=== PATIENT | female | born 1970 | race Caucasian/White ===

== ENCOUNTER 2018-05-10 17:56 | Inpatient (IN) | payer OTHER ==
[~2018-05-10] VITALS: Ht 160 cm; Wt 54.4 kg
[2018-05-10 18:11] VITALS: Ht 160 cm; Wt 54.4 kg
[2018-05-10 20:18] LABS: BASOPHIL % 0.3 % (0-2); PLATELET COUNT 270 x10^3mcL (130-400); RED CELL DISTRIBUTION WIDTH 13.2 % (11.5-14.5)
[2018-05-10 20:27] LABS: CARBON DIOXIDE 20.6 mmol/L (21-32); CREATININE SERUM 1.6 mg/dL (0.6-1.0); POTASSIUM SERUM 3.4 mmol/L (3.5-5.1)
[2018-05-10 20:33] LABS: ALBUMIN 4.5 g/dL (3.4-5.0); BILIRUBIN TOTAL 0.4 mg/dL (0.20-1.00)
[2018-05-10 20:44] LABS: TOTAL PROTEIN, SERUM 8.7 g/dL (6.4-8.2)
[2018-05-10 22:15] LABS: UA SPECIFIC GRAVITY 1.025 (1.005-1.035); microscopic required? YES; urine erythrocyte 2+ (NEGATIVE)
[2018-05-10 22:32] LABS: AMPHETAMINE QUAL UR NONE DETECTED (See below)
[2018-05-11 00:59] VITALS: BP 99/55
[2018-05-11 05:45] VITALS: BP 106/62
[2018-05-11 06:42] LABS: BASOPHIL % 0.4 % (0-2); PLATELET COUNT 198 x10^3mcL (130-400); RED CELL DISTRIBUTION WIDTH 13.3 % (11.5-14.5)
[2018-05-11 06:43] LABS: BILIRUBIN TOTAL 0.4 mg/dL (0.20-1.00); CALCIUM 7.7 mg/dL (8.5-10.1); CARBON DIOXIDE 22.8 mmol/L (21-32); CREATININE SERUM 1.4 mg/dL (0.6-1.0); TOTAL PROTEIN, SERUM 6.8 g/dL (6.4-8.2)
[2018-05-11 06:45] LABS: ALBUMIN 3.3 g/dL (3.4-5.0)
[2018-05-11 08:00] VITALS: BP 97/57
[2018-05-11 09:30] VITALS: BP 92/55
[2018-05-11 17:47] VITALS: BP 91/48
[2018-05-11 20:54] VITALS: BP 92/49
[2018-05-12 05:09] VITALS: BP 101/53
[2018-05-12 06:27] LABS: ALKALINE PHOSPHATASE 50 U/L (46-116); ALT/SGPT 14 U/L (14-59); AST/SGOT 29 U/L (15-37); CALCIUM 8.3 mg/dL (8.5-10.1); CARBON DIOXIDE 27.9 mmol/L (21-32); CHLORIDE SERUM 104 mmol/L (98-107); GFR1 > 60 mL/min; GLUCOSE SERUM 96 mg/dL (74-106); POTASSIUM SERUM 4.2 mmol/L (3.5-5.1); SODIUM SERUM 137 mmol/L (136-145); TOTAL PROTEIN, SERUM 6.9 g/dL (6.4-8.2)
[2018-05-12 06:44] LABS: ALBUMIN 3.2 g/dL (3.4-5.0)
[2018-05-12 09:04] VITALS: BP 92/59
[2018-05-12 17:23] VITALS: BP 98/60
[2018-05-12 20:57] VITALS: BP 105/63
[2018-05-13 05:56] VITALS: BP 97/54
[2018-05-13 09:25] VITALS: BP 89/47
[2018-05-13 11:34] VITALS: BP 93/55
[2018-05-13 17:27] VITALS: BP 106/63
[2018-05-13 20:56] VITALS: BP 101/65
[2018-05-14 05:23] VITALS: BP 107/62
[2018-05-14 06:25] LABS: CALCIUM 8.4 mg/dL (8.5-10.1); CARBON DIOXIDE 24.8 mmol/L (21-32); CHLORIDE SERUM 104 mmol/L (98-107); GFR1 > 60 mL/min; GLUCOSE SERUM 125 mg/dL (74-106); POTASSIUM SERUM 4.1 mmol/L (3.5-5.1); SODIUM SERUM 138 mmol/L (136-145)
[2018-05-14 06:43] LABS: BASOPHIL % 0.2 % (0-2); PLATELET COUNT 220 x10^3mcL (130-400); RED CELL DISTRIBUTION WIDTH 13.5 % (11.5-14.5)
[2018-05-14 08:55] VITALS: BP 110/64
[2018-05-14 15:51] VITALS: BP 107/59
[2018-05-14 21:04] VITALS: BP 117/63
[2018-05-15 05:32] VITALS: BP 106/67
[2018-05-15 08:23] VITALS: BP 114/71
[2018-05-15 16:07] VITALS: BP 114/71
== END 2018-05-15 17:28 | disposition home or self-care (01) | DRG 414 ==
LOC: ED 17:56 → MU 05-11 00:16
PROVIDERS: Emergency Medicine; Internal Medicine Pulmonary Disease; Surgery; ADMIT Internal Medicine Pulmonary Disease
PROC: 0FT40ZZ Resection of Gallbladder, Open Approach (ICD-10-PCS; principal; 2018-05-13 15:00)
DX: K80.00 Calculus of gallbladder with acute cholecystitis without obstruction (principal); K85.90 Acute pancreatitis without necrosis or infection, unspecified; N17.9 Acute kidney failure, unspecified; K56.50 Intestinal adhesions [bands], unspecified as to partial versus complete obstruction; E86.0 Dehydration; F17.210 Nicotine dependence, cigarettes, uncomplicated; D64.9 Anemia, unspecified; E66.9 Obesity, unspecified; F12.10 Cannabis abuse, uncomplicated; Z98.84 Bariatric surgery status; Z68.21 Body mass index [BMI] 21.0-21.9, adult; Z98.51 Tubal ligation status; Z90.710 Acquired absence of both cervix and uterus
CPT/HCPCS: 78226; A9537; C9113; J1170; J1644; J1885; J2175; J2250; J2270; J2405; J2543; J2765; J3010; J3430; J3490; J7030; Q0092; Q9966

== ENCOUNTER 2018-05-30 14:22 | Inpatient (IN) | payer OTHER ==
[~2018-05-30] VITALS: Ht 162.6 cm; Wt 49.0 kg
[2018-05-30 14:37] VITALS: Ht 162.6 cm; Wt 49.0 kg
[2018-05-30 16:13] LABS: RED CELL DISTRIBUTION WIDTH 11.8 % (11.5-14.5)
[2018-05-30 16:16] LABS: ALBUMIN 3.4 g/dL (3.4-5.0); BILIRUBIN TOTAL 0.7 mg/dL (0.20-1.00); CALCIUM 8.7 mg/dL (8.5-10.1); CREATININE SERUM 2.8 mg/dL (0.6-1.0); POTASSIUM SERUM 5.3 mmol/L (3.5-5.1); TOTAL PROTEIN, SERUM 7.6 g/dL (6.4-8.2)
[2018-05-30 16:21] LABS: PLATELET COUNT 418 x10^3mcL (130-400)
[2018-05-30 17:01] LABS: ATYPICAL LYMPH 1 %; BAND NEUTROPHIL 2 % (0-10); MONOCYTE 8 % (0-7); SEGMENTED NEUTROPHILS 79 % (37-75)
[2018-05-30 17:02] LABS: PLATELET MORPHOLOGY PLATELETS INCREASED; rbc morphology (normal/abnorm) NORMAL (NORMAL)
[2018-05-30 19:55] VITALS: BP 85/49
[2018-05-30 20:00] VITALS: BP 81/52
[2018-05-30 20:30] VITALS: BP 79/50
[2018-05-30 21:00] VITALS: BP 84/48
[2018-05-30 21:31] VITALS: BP 80/49
[2018-05-30 23:05] VITALS: BP 90/52
[2018-05-31 02:07] LABS: UA SPECIFIC GRAVITY 1.015 (1.005-1.035); microscopic required? YES; urine erythrocyte 1+ (NEGATIVE)
[2018-05-31 03:20] VITALS: BP 88/56
[2018-05-31 05:48] LABS: BASOPHIL % 0 % (0-2); PLATELET COUNT 267 x10^3mcL (130-400); RED CELL DISTRIBUTION WIDTH 12.2 % (11.5-14.5)
[2018-05-31 06:16] LABS: CALCIUM 7.6 mg/dL (8.5-10.1); CARBON DIOXIDE 17.4 mmol/L (21-32); CREATININE SERUM 1.6 mg/dL (0.6-1.0); MAGNESIUM 1.7 mg/dL (1.8-2.4); PHOSPHOROUS 3.8 mg/dL (2.5-4.9); POTASSIUM SERUM 3.6 mmol/L (3.5-5.1)
[2018-05-31 09:57] LABS: CALCIUM 7.7 mg/dL (8.5-10.1); CARBON DIOXIDE 17.2 mmol/L (21-32); CREATININE SERUM 1.5 mg/dL (0.6-1.0)
[2018-05-31 10:03] VITALS: BP 92/51
[2018-05-31 11:57] LABS: CHOLESTEROL/HDL RATIO 2.1
[2018-05-31 13:05] LABS: CALCIUM 7.7 mg/dL (8.5-10.1); CARBON DIOXIDE 18.9 mmol/L (21-32); CREATININE SERUM 1.3 mg/dL (0.6-1.0); POTASSIUM SERUM 3.9 mmol/L (3.5-5.1)
[2018-05-31 15:39] LABS: AMPHETAMINE QUAL UR NONE DETECTED (See below)
[2018-05-31 16:48] LABS: CALCIUM 7.9 mg/dL (8.5-10.1); CARBON DIOXIDE 15.8 mmol/L (21-32); CREATININE SERUM 1.3 mg/dL (0.6-1.0); POTASSIUM SERUM 3.8 mmol/L (3.5-5.1)
[2018-05-31 17:11] VITALS: BP 126/82
[2018-05-31 20:49] LABS: CALCIUM 8.3 mg/dL (8.5-10.1); CARBON DIOXIDE 17.7 mmol/L (21-32); CREATININE SERUM 1.2 mg/dL (0.6-1.0); POTASSIUM SERUM 3.7 mmol/L (3.5-5.1)
[2018-05-31 23:40] VITALS: BP 90/50
[2018-06-01 06:00] VITALS: BP 95/55
[2018-06-01 06:17] LABS: PLATELET COUNT 234 x10^3mcL (130-400); RED CELL DISTRIBUTION WIDTH 12.4 % (11.5-14.5)
[2018-06-01 06:24] LABS: BASOPHIL % 0 % (0-2)
[2018-06-01 06:53] LABS: BILIRUBIN TOTAL 0.77 mg/dL (0.20-1.00); CALCIUM 8.2 mg/dL (8.5-10.1); CARBON DIOXIDE 15.5 mmol/L (21-32); CREATININE SERUM 1.2 mg/dL (0.6-1.0); POTASSIUM SERUM 3.6 mmol/L (3.5-5.1)
[2018-06-01 06:54] LABS: ALBUMIN 2.7 g/dL (3.4-5.0); TOTAL PROTEIN, SERUM 5.5 g/dL (6.4-8.2)
[2018-06-01 10:56] VITALS: BP 108/70
[2018-06-01 14:00] VITALS: BP 100/59
[2018-06-01 17:19] VITALS: BP 103/67
[2018-06-01 20:52] VITALS: BP 99/55
[2018-06-02 06:07] VITALS: BP 104/66
[2018-06-02 06:35] LABS: CALCIUM 8.4 mg/dL (8.5-10.1); CARBON DIOXIDE 17.1 mmol/L (21-32); CREATININE SERUM 1.3 mg/dL (0.6-1.0); POTASSIUM SERUM 4.2 mmol/L (3.5-5.1)
[2018-06-02 06:44] LABS: BASOPHIL % 0.1 % (0-2); PLATELET COUNT 234 x10^3mcL (130-400); RED CELL DISTRIBUTION WIDTH 12.6 % (11.5-14.5)
[2018-06-02 10:30] VITALS: BP 151/70
[2018-06-02 12:53] VITALS: BP 126/68
[2018-06-02 17:00] VITALS: BP 92/54
[2018-06-02 18:17] VITALS: BP 92/54
== END 2018-06-02 21:22 | disposition short-term general hospital (02) | DRG 871 ==
LOC: ED 14:22 → IC 18:33 → DU 05-31 19:23
PROVIDERS: Emergency Medicine; Internal Medicine; Internal Medicine Pulmonary Disease; Specialist; ADMIT Internal Medicine Pulmonary Disease
DX: A41.9 Sepsis, unspecified organism (principal); K85.90 Acute pancreatitis without necrosis or infection, unspecified; E43 Unspecified severe protein-calorie malnutrition; R65.21 Severe sepsis with septic shock; E87.1 Hypo-osmolality and hyponatremia; N17.9 Acute kidney failure, unspecified; E27.40 Unspecified adrenocortical insufficiency; K56.609 Unspecified intestinal obstruction, unspecified as to partial versus complete obstruction; Z68.1 Body mass index [BMI] 19.9 or less, adult; R62.7 Adult failure to thrive; E87.5 Hyperkalemia; Z90.49 Acquired absence of other specified parts of digestive tract; I95.9 Hypotension, unspecified; Z90.710 Acquired absence of both cervix and uterus; F17.200 Nicotine dependence, unspecified, uncomplicated; K52.9 Noninfective gastroenteritis and colitis, unspecified; F12.90 Cannabis use, unspecified, uncomplicated; I10 Essential (primary) hypertension; E86.0 Dehydration
CPT/HCPCS: 82962; C9113; J1720; J1956; J2270; J2405; J2543; J2765; J3490; J7030; J7131; P9047; Q0092; Q9967